=== PATIENT | female | born 2000 | race Hispanic/Latino ===

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

== ENCOUNTER → 2022-03-19 | Outpatient (CLI) | payer MEDICAID ==
[~2022-03-19] MED LIST: HONEY 1 APPL/ML TUBE TP ONE; LIDOCAINE HCL 4% LTA SOL 4 ML VIAL ONE
== END | disposition home or self-care (01) ==
LOC: WHH 12:58
PROVIDERS: ATTEND Family Medicine
DX: L97.512 Non-pressure chronic ulcer of other part of right foot with fat layer exposed (principal); L97.322 Non-pressure chronic ulcer of left ankle with fat layer exposed; L97.522 Non-pressure chronic ulcer of other part of left foot with fat layer exposed; L98.492 Non-pressure chronic ulcer of skin of other sites with fat layer exposed; S91.002A Unspecified open wound, left ankle, initial encounter; S91.302A Unspecified open wound, left foot, initial encounter; S91.301A Unspecified open wound, right foot, initial encounter; S61.401A Unspecified open wound of right hand, initial encounter; F17.210 Nicotine dependence, cigarettes, uncomplicated; V48.4XXA Person boarding or alighting a car injured in noncollision transport accident, initial encounter; Y93.89 Activity, other specified; Y92.89 Other specified places as the place of occurrence of the external cause; Y99.8 Other external cause status
CPT/HCPCS: 11042; 99215; A4450; 99205

== ENCOUNTER → 2022-03-26 | Outpatient (CLI) | payer MEDICAID ==
[~2022-03-26] MED LIST changes: -HONEY 1 APPL/ML TUBE TP ONE
== END | disposition home or self-care (01) ==
LOC: WHH 12:54
PROVIDERS: ATTEND Family Medicine
DX: L97.512 Non-pressure chronic ulcer of other part of right foot with fat layer exposed (principal); L97.322 Non-pressure chronic ulcer of left ankle with fat layer exposed; L97.522 Non-pressure chronic ulcer of other part of left foot with fat layer exposed; L98.492 Non-pressure chronic ulcer of skin of other sites with fat layer exposed; S91.002D Unspecified open wound, left ankle, subsequent encounter; S91.301D Unspecified open wound, right foot, subsequent encounter; S61.401D Unspecified open wound of right hand, subsequent encounter; S91.302D Unspecified open wound, left foot, subsequent encounter; F17.210 Nicotine dependence, cigarettes, uncomplicated; V48.4XXD Person boarding or alighting a car injured in noncollision transport accident, subsequent encounter
CPT/HCPCS: 11042

== ENCOUNTER → 2022-04-02 | Outpatient (CLI) | payer MEDICAID | END | disposition home or self-care (01) | LOC: WHH 13:05 | PROVIDERS: ATTEND Family Medicine | DX: S91.002D Unspecified open wound, left ankle, subsequent encounter (principal); L97.322 Non-pressure chronic ulcer of left ankle with fat layer exposed; L97.512 Non-pressure chronic ulcer of other part of right foot with fat layer exposed; L97.522 Non-pressure chronic ulcer of other part of left foot with fat layer exposed; L98.492 Non-pressure chronic ulcer of skin of other sites with fat layer exposed; F17.210 Nicotine dependence, cigarettes, uncomplicated; V48.4XXD Person boarding or alighting a car injured in noncollision transport accident, subsequent encounter | CPT/HCPCS: 11042 ==

== ENCOUNTER → 2022-04-09 | Outpatient (CLI) | payer MEDICAID | END | disposition home or self-care (01) | LOC: WHH 13:23 | PROVIDERS: ATTEND Family Medicine | DX: L97.322 Non-pressure chronic ulcer of left ankle with fat layer exposed (principal); L97.522 Non-pressure chronic ulcer of other part of left foot with fat layer exposed; L97.512 Non-pressure chronic ulcer of other part of right foot with fat layer exposed; L98.492 Non-pressure chronic ulcer of skin of other sites with fat layer exposed; S91.002D Unspecified open wound, left ankle, subsequent encounter; S91.302D Unspecified open wound, left foot, subsequent encounter; S91.301D Unspecified open wound, right foot, subsequent encounter; S61.401D Unspecified open wound of right hand, subsequent encounter; F17.210 Nicotine dependence, cigarettes, uncomplicated; V48.4XXD Person boarding or alighting a car injured in noncollision transport accident, subsequent encounter | CPT/HCPCS: 11042; A6209 ==